=== PATIENT | female | born 1950 | race Caucasian/White ===

== ENCOUNTER 2020-07-14 02:35 | Outpatient (CLI) | payer MEDICARE, SELFPAY ==
[2020-07-14 22:41] LABS: SARS-CoV-2 RNA PCR Negative
== END 2020-07-14 02:36 | disposition home or self-care (01) ==
LOC: ANHCOVIDDT 02:35
PROVIDERS: Visit Provider Obstetrics & Gynecology
DX: Z01.818 Encounter for other preprocedural examination (principal); Z20.828 Contact with and (suspected) exposure to other viral communicable diseases
CPT/HCPCS: 87635; C9803; U0003

== ENCOUNTER 2020-07-14 09:17 | Outpatient (CLI) | payer MEDICARE, SELFPAY ==
--- NOTE | 2020-07-14 09:21 | ECG_ITS ---
Measurements Intervals [place] Rate: 71 P: -28 FL: 152 QRS: -2 QRSD: 89 T: 9 QT: 391 QTc: 426 Interpretive Statements SINUS RHYTHM BORDERLINE R WAVE PROGRESSION, ANTERIOR LEADS BASELINE ARTIFACT- I, III, AVR, AVL, AVF, V1-V6 BORDERLINE ECG Electronically Signed On 07-14-2020 9:57:42 DIRECTOR OF VALUATION by Jesus Duke D.O.
[2020-07-14 09:48] LABS: Hematocrit 38.3 % (37.0-47.0); Hemoglobin 13.1 g/dL (12.0-15.0)
[2020-07-14 10:07] LABS: Anion Gap 7 mmol/L (8-16); Blood Urea Nitrogen 19 mg/dL (7-17); Calcium 9.5 mg/dL (8.4-10.2); Carbon Dioxide 33 mmol/L (22-30); Chloride 99 mmol/L (98-107); Estimated Glomerular Filt Rate > 60; Glucose 93 mg/dL (65-105); Sodium 139 mmol/L (137-145)
== END 2020-07-14 09:18 | disposition home or self-care (01) ==
LOC: ANHSURGERY 09:20
PROVIDERS: PCP Internal Medicine; Visit Provider Obstetrics & Gynecology
DX: Z01.818 Encounter for other preprocedural examination (principal); I10 Essential (primary) hypertension; N95.0 Postmenopausal bleeding; R94.31 Abnormal electrocardiogram [ECG] [EKG]
CPT/HCPCS: 36415; 80048; 85014; 85018; 87635; 93005; C9803; U0003

== ENCOUNTER 2020-07-17 00:58 | Day surgery (SDC) | payer MEDICARE, SELFPAY ==
[2020-07-07 15:39] VITALS: BMI 20.7
--- NOTE | 2020-07-14 14:25 | P.HP_ITS ---
H&P: HPI History of Present Illness Date/Time: 07/14/20 14:25 Chief complaint: post menopausal bleeding Narrative: Shaniqua Pink is a 70 year old female admitted hysteroscopy and dilatation curettage secondary to postmenopausal bleeding she underwent received a question lesion. Risks and benefits procedure reviewed in full. She received the ACOG handout and hysteroscopy as well as dilatation curettage. Asked to proceed Review of Systems Review of Systems: All systems reviewed & are unremarkable except as noted in HPI and below [facility] Social History Social History Smoking status: Never smoker Second hand tobacco smoke exposure: No Alcohol intake: never Substance use: never Substance use type: does not use Spiritual care concerns: No Meds Home Medications and Allergies Home Medications Medication Instructions Recorded Confirmed Type alendronate [Fosamax] 70 mg PO WEEKLY 07/07/20 07/07/20 History diclofenac-misoprostol [Arthrotec 1 tablet PO BID 07/07/20 07/07/20 History 75] estradiol-norethindrone acet 1 tablet PO DAILY 07/07/20 07/07/20 History [Activella] gabapentin [Neurontin] 100 mg PO HS 07/07/20 07/07/20 History hydrochlorothiazide 12.5 mg PO DAILY 07/07/20 07/07/20 History propranolol 60 mg PO DAILY 07/07/20 07/07/20 History sertraline [Zoloft] 100 mg PO DAILY 07/07/20 07/07/20 History Allergies Allergy/AdvReac Type Severity Reaction Status Date / Time acetaminophen AdvReac Rash Verified 07/07/20 15:56 aspirin AdvReac Rash Verified 07/07/20 15:57 celecoxib [From Celebrex] AdvReac Rash Verified 07/07/20 15:56 Exam Const: General: no acute distress Eyes: General: appearance normal, both eyes and all related structures Neck: Neck: supple and no JVD Thyroid: thyroid normal Resp: Effort & Inspection: normal respiratory effort Auscultation: clear to auscultation bilaterally Cardio: Rate: regular rate Rhythm: regular rhythm GI: Inspection: non-distended GI Palp: Yes Soft to palpation, No Tenderness to palpation present (GI) and No Guarding due to palpation present (GI) Auscultation: normal bowel sounds : General: Yes bladder normal to palpation External Female Exam: normal external appearance Speculum Exam - Vagina: normal vaginal discharge and No vaginal bleeding Speculum Exam - Cervix: nontender Bimanual exam- vagina & uterus: bladder normal to palpation and No Cervical tenderness present OB/external & speculum: No vaginal bleeding Skin: General skin exam: no rashes or lesions noted Extrem: General: normal to inspection and no edema Psych: Mental Status: mental status grossly normal Affect: normal affect Assessment and Plan Additional Plan impression: Postmenopausal bleeding Plan: Hysteroscopy/ dilatation curettage
--- NOTE | 2020-07-17 06:20 | WPDHPUPDATE1 ---
History and Physical Update Update Date/Time: 07/17/20 06:20 History and Physical has been reviewed, including an updated exam of the patient. There are NO changes in the patient's condition. Risks, benefits, and alternatives have been discussed and questions answered. Patient agrees to proceed with procedure.
[2020-07-17 11:43] VITALS: BP 113/66; PULSE 72; RESP 16; TEMP 36.2; O2SAT 99
[2020-07-17] MEDS: LACTATED RINGERS 1,000 ML 30 ML IV CONT (12:21)
--- NOTE | 2020-07-17 12:29 | WPDANESEPPF ---
Anes - Initial Pre Proc Eval Procedure: Operation Date: 07/17/20 13:30 Proposed Procedures p Hysteroscopy, Dilation and Curettage - Rusty Saldana MD Date/Time: 07/17/20 12:29 Surgeon: Rusty Saldana MD Pre Op Diagnosis: post menopausal bleeding Patient Data Age: 70 Gender: F Height: 1.65 m Weight: 54 kg Last Vital Signs Temp 36.2 C L 07/17/20 11:43 Pulse 72 07/17/20 11:43 Resp 16 07/17/20 11:43 BP 113/66 07/17/20 11:43 Pulse Ox 99 07/17/20 11:43 Allergies Allergy/AdvReac Type Severity Reaction Status Date / Time acetaminophen AdvReac Rash Verified 07/17/20 12:01 aspirin AdvReac Rash Verified 07/17/20 12:01 celecoxib [From Celebrex] AdvReac Rash Verified 07/17/20 12:01 levofloxacin AdvReac Vomiting Verified 07/17/20 12:02 Home Medications Medication Instructions Recorded Confirmed Type alendronate [Fosamax] 70 mg PO WEEKLY 07/07/20 07/17/20 History diclofenac-misoprostol [Arthrotec 1 tablet PO BID 07/07/20 07/17/20 History 75] estradiol-norethindrone acet 1 tablet PO DAILY 07/07/20 07/17/20 History [Activella] gabapentin [Neurontin] 100 mg PO HS 07/07/20 07/17/20 History hydrochlorothiazide 12.5 mg PO DAILY 07/07/20 07/17/20 History propranolol 60 mg PO DAILY 07/07/20 07/17/20 History sertraline [Zoloft] 100 mg PO DAILY 07/07/20 07/17/20 History pcjipliqbbhg-qoga-awmwn acid 1 tablet PO DAILY 07/17/20 07/17/20 History [Centrum Complete] omega-3 fatty acids [Fish Oil] 1,250 mg PO DAILY 07/17/20 07/17/20 History Patient hx anesthesia problems: none Family hx anesthesia problems: none PMFSH Past Medical History Medical History (Updated 07/17/20 @ 12:29 by Fan Mcconnell DO) Hypertension Scoliosis Social History Social History Smoking status: Never smoker Second hand tobacco smoke exposure: No Alcohol intake: never Substance use: never Substance use type: does not use Living arrangements: with family Spiritual care concerns: No Anes - Eval Final PreProcedure Day of Procedure 07/17/20 12:29 Patient weight: normal Heart: regular rate and rhythm Lungs: clear to auscultation and normal air movement Airway: Mallampati scale class II Neurological: alert and oriented Last oral intake: >/= 8 hours ASA classification: II Emergent: no Anesthetic plan: proceed Anesthesia type and monitoring: general GIVS and standard monitoring Informed Consent: The patient's anesthetic plan and its attendant risks and benefits were discussed with the patient/family/POA. Questions were solicited and answers provided to the satisfaction of the patient/family/POA.
--- NOTE | 2020-07-17 13:41 | PM.PROC ---
Procedure Note - Detailed Date of procedure: 07/17/20 Pre-op diagnosis: post menopausal bleeding Surgeon: Rusty Saldana MD Postop diagnosis: Postmenopausal bleeding/benign-appearing endometrial polyp Procedure: Hysteroscopy/dilatation curettage/polypectomy Anesthesia: IV sedation local Complications: None Findings: Small benign appearing endometrial polyp. Normal-appearing fallopian tube ostia bilaterally. Benign appearing endometrium otherwise Description of procedure: The patient was prepped draped in sterile fashion placed in the dorsal lithotomy position. Under excellent IV sedation weighted speculum placed posterior fornix of. Anterior lip of the cervix grasped with single-tooth tenaculum. 2.5cc of 1% anesthesia placed at 2:46 a.m. 10:00 a.m. cervix. Uterus was noted to be retroverted and sounded to 8cm. Serial dilatation with fragmented dilators performed. This was followed by passage of the 5mm visualizing hysteroscope using normal saline and visualizing medium. Benign bland atrophic endometrium was seen. A small polypoid lesion was seen and this was removed with the polyp forceps. The uterus was scraped over the entire 360? revealing very minimal tissue. The instruments removed. The patient was awakened. All sponge, needle, instrument counts were correct. There were no immediate complications
[2020-07-17 13:43] VITALS: BP 104/53; PULSE 69; RESP 16; TEMP 37.3; O2SAT 96
[2020-07-17 14:10] VITALS: BP 123/69; PULSE 66; RESP 16
[2020-07-17 14:40] VITALS: BP 118/57; PULSE 70; RESP 18
[2020-07-17 15:02] VITALS: BP 112/67; PULSE 68; RESP 18
== END 2020-07-17 15:03 | disposition home or self-care (01) ==
PROVIDERS: PCP Internal Medicine; Visit Provider Obstetrics & Gynecology
PROC: 0U5B8ZZ Destruction of Endometrium, Via Natural or Artificial Opening Endoscopic (ICD-10-PCS; CPT 58563; principal; 2020-07-17 13:30)
DX: N93.9 Abnormal uterine and vaginal bleeding, unspecified (principal); N84.0 Polyp of corpus uteri; Z79.82 Long term (current) use of aspirin
CPT/HCPCS: 58558; 88305; J2250; J2405; J2704; J3010; J7120

== ENCOUNTER 2020-07-21 15:29 | Outpatient (CLI) | payer MEDICARE, SELFPAY ==
--- NOTE | ~2020-07-21 | MM_ITS ---
EXAMINATION: MM screening [facility] w [facility] HISTORY: Screening mammogram TECHNIQUE: Craniocaudal and mediolateral oblique 3-D tomosynthesis images were obtained and synthetic 2-D images were generated. CAD analysis was submitted and interpreted. COMPARISON: 07/10/2019 bilateral diagnostic digital mammogram and limited left breast ultrasound 01/08/2019 limited left breast ultrasound 07/03/2018 diagnostic left digital mammogram and limited left breast ultrasound 06/26/2018, 05/25/2017 bilateral digital screening mammogram examinations BREAST PARENCHYMAL COMPOSITION: The breasts are heterogeneously dense, which may obscure small masses . FINDINGS: Occasional bilateral benign-appearing calcifications. There is no evidence of suspicious ma ss, calcification, or architectural distortion to suggest malignancy in either breast. There has been no suspicious interval change. IMPRESSION: 1. No mammographic evidence of malignancy. 2. Recommend routine screening mammography in one year. BI-RADS Category 2: Benign finding(s). Reviewed, dictated and finalized at location A. S MAINTAINER
== END 2020-07-21 15:30 | disposition home or self-care (01) ==
PROVIDERS: PCP Internal Medicine; Visit Provider Obstetrics & Gynecology
DX: Z12.31 Encounter for screening mammogram for malignant neoplasm of breast (principal)
CPT/HCPCS: 77063; 77067

== ENCOUNTER 2021-08-04 12:48 | Outpatient (CLI) | payer MEDICARE, SELFPAY ==
--- NOTE | ~2021-08-04 | MM_ITS ---
EXAMINATION: MM screening [facility] BI w george HISTORY: Screening mammogram TECHNIQUE: Craniocaudal and mediolateral oblique 3-D tomosynthesis images were obtained and synthetic 2-D images were generated. CAD analysis was submitted and interpreted. COMPARISON: 07/21/2020, 07/10/2019, 07/03/2018, 06/26/2018 BREAST PARENCHYMAL COMPOSITION: The breasts are heterogeneously dense, which may obscure small masses . FINDINGS: There is no evidence of suspicious mass, calcification, or architectural distortion to sugg est malignancy in either breast. There has been no suspicious interval change. IMPRESSION: 1. No mammographic evidence of malignancy. 2. Recommend routine screening mammography in one year. BI-RADS Category 1: Negative Reviewed, dictated and finalized at location A. HANDLER
== END 2021-08-04 12:49 | disposition home or self-care (01) ==
LOC: ANHIMG 12:51
PROVIDERS: PCP Internal Medicine; Visit Provider Obstetrics & Gynecology
DX: Z12.31 Encounter for screening mammogram for malignant neoplasm of breast (principal)
CPT/HCPCS: 77063; 77067

== ENCOUNTER 2022-09-27 17:52 | Outpatient (CLI) | payer MEDICARE, SELFPAY ==
--- NOTE | ~2022-09-27 | MM_ITS ---
EXAMINATION: MM screening [facility] w [facility] HISTORY: Screening mammogram TECHNIQUE: Craniocaudal and mediolateral oblique 3-D tomosynthesis images were obtained and synthetic 2-D images were generated. CAD analysis was submitted and interpreted. COMPARISON: 08/04/2021, 07/21/2020 bilateral screening mammogram examinations BREAST PARENCHYMAL COMPOSITION: The breasts are heterogeneously dense, which may obscure small masses . FINDINGS: There is no evidence of suspicious mass, calcification, or architectural distortion to sugg est malignancy in either breast. There has been no suspicious interval change. IMPRESSION: 1. No mammographic evidence of malignancy. 2. Recommend routine screening mammography in one year. BI-RADS Category 1: Negative Reviewed, dictated and finalized at location A. NING CUSTODIAN
== END 2022-09-27 17:53 | disposition home or self-care (01) ==
PROVIDERS: PCP Internal Medicine; Visit Provider Obstetrics & Gynecology
DX: Z12.31 Encounter for screening mammogram for malignant neoplasm of breast (principal)
CPT/HCPCS: 77063; 77067

== ENCOUNTER 2024-04-29 10:57 | Outpatient (CLI) | payer MEDICARE, SELFPAY ==
--- NOTE | 2024-04-29 12:35 | ECG_ITS ---
Test Date: 2024-04-29 12:52:37 Measurements Intervals [place] Rate: 64 P: 53 [place]: 169 QRS: -29 QRSD: 90 T: 23 QT: 406 QTc: 419 Interpretive Statements SINUS RHYTHM WITH SINUS ARRHYTHMIA DELAYED PRECORDIAL R/S TRANSITION BORDERLINE T WAVE ABNORMALITY- INFERIOR LEADS BASELINE ARTIFACT- I, II, III, AVR, AVL, AVF BORDERLINE ECG No previous ECG available for comparison Electronically Signed On 04-29-2024 13:42:08 CDT by Jesus Duke D.O.
[2024-04-29 13:40] LABS: Basophils Percent Auto 0.8 % (0.2-1.2); Eosinophils Absolute Auto 0.2 K/mm3 (0-0.3); Eosinophils Percent Auto 4.7 % (0-4.4); Hematocrit 38.8 % (37.0-47.0); Hemoglobin 12.9 g/dL (12.0-15.0); Immature Granulocyte Absolute 0.01 K/mm3 (0.00-0.031); Immature Granulocyte Percent A 0.2 % (0-0.5); Lymphocytes Absolute Auto 1.72 K/mm3 (0.9-3.2); Lymphocytes Percent Auto 34.8 % (18.3-44.2); Mean Corpuscular HGB Conc 33.2 g/dl (32-36); Mean Corpuscular Hemoglobin 33.9 pg (26-34); Mean Corpuscular Volume 102.1 fl (80-100); Mean Platelet Volume 10.6 fl (7.4-10.4); Monocytes Absolute Auto 0.3 K/mm3 (0.1-0.6); Monocytes Percent Auto 6.9 % (2.6-8.5); Neutrophils Absolute Auto 2.6 K/mm3 (1.3-6.7); Neutrophils Percent Auto 52.6 % (45.5-73.1); Platelet Count Result 252 k/mm3 (150-375); Red Cell Distribution Width 12.2 % (11.5-14.5); White Blood Count 4.9 K/mm3 (4.5-10.0)
[2024-04-29 13:48] LABS: Partial Thromboplastin Time 23.7 Seconds (22.3-36.8); Prothrombin Time 13.3 Seconds (11.1-14.7)
[2024-04-29 13:55] LABS: Alanine Aminotransferase 29 U/L (6-35); Albumin Level 4.1 g/dL (3.5-5.1); Alkaline Phosphatase 54 U/L (38-126); Anion Gap 7 mmol/L (4-12); Aspartate Amino Transferase 36 U/L (14-36); Bilirubin,Total 0.7 mg/dL (0.2-1.3); Blood Urea Nitrogen 17 mg/dL (7-17); Carbon Dioxide 30 mmol/L (22-30); Chloride 104 mmol/L (98-107); Estimated Glomerular Filt Rate > 60; Glucose 87 mg/dL (65-110); Potassium 4.6 mmol/L (3.4-5.0); Sodium 141 mmol/L (137-145)
== END 2024-04-29 10:58 | disposition home or self-care (01) ==
PROVIDERS: PCP Internal Medicine; Visit Provider Urology
DX: N81.10 Cystocele, unspecified (principal); I10 Essential (primary) hypertension
CPT/HCPCS: 36415; 80053; 85025; 85610; 85730; 86850; 86900; 86901; 87086; 93005

== ENCOUNTER 2024-05-06 01:55 | Day surgery (SDC) | payer MEDICARE, SELFPAY ==
--- NOTE | 2024-04-28 17:35 | PM.IMHP ---
H&P: HPI History of Present Illness Date/Time: 04/28/24 17:35 Chief Complaint: pelvic organ prolapse Narrative: she is pelvic organ prolapse with intrinsic sphincter deficiency. She presents for operative intervention Review of Systems Review of Systems: All systems reviewed & are unremarkable except as noted in HPI and below PMFSH Past Medical History Medical History Hypertension Scoliosis Social History Social History Smoking status: Never smoker Second hand tobacco smoke exposure: No Alcohol intake: never Substance use: never Substance use type: does not use Living arrangements: with family Spiritual care concerns: No Meds Home Medications and Allergies Home Medications Medication Instructions Recorded Confirmed Type alendronate 70 mg tablet (Fosamax) 70 mg PO WEEKLY 07/07/20 07/17/20 History diclofenac 75 mg-misoprostol 200 1 tablet PO BID 07/07/20 07/17/20 History mcg tablet,immediate,delayed release (Arthrotec) estradiol-norethindrone acet 0.5 1 tablet PO DAILY 07/07/20 07/17/20 History mg-0.1 mg tablet gabapentin 100 mg capsule 100 mg PO HS 07/07/20 07/17/20 History (Neurontin) hydrochlorothiazide 12.5 mg tablet 12.5 mg PO DAILY 07/07/20 07/17/20 History propranolol 60 mg capsule,24 60 mg PO DAILY 07/07/20 07/17/20 History hr,extended release sertraline 100 mg tablet (Zoloft) 100 mg PO DAILY 07/07/20 07/17/20 History multivitamin-ferrous 1 tablet PO DAILY 07/17/20 07/17/20 History fumarate-folic acid 18 mg-400 mcg tablet (Centrum Complete) omega-3 fatty acids 1,250 mg PO DAILY 07/17/20 07/17/20 History Allergies Allergy/AdvReac Type Severity Reaction Status Date / Time acetaminophen AdvReac Rash Verified 07/17/20 12:01 aspirin AdvReac Rash Verified 07/17/20 12:01 celecoxib [From Celebrex] AdvReac Rash Verified 07/17/20 12:01 levofloxacin AdvReac Vomiting Verified 07/17/20 12:02 Exam Narrative: significant cystocele with loss of apical support no urethral mobility significant scoliosis Assessment and Plan Assessment and plan (1) Pelvic organ prolapse quantification stage 4 cystocele: Code(s): N81.10 - Cystocele, unspecified Status: Acute (2) Intrinsic sphincter deficiency (ISD): Code(s): N36.42 - Intrinsic sphincter deficiency (ISD) Status: Acute Plan plan for vaginal prolapse procedure. Likely sacral spinous ligament fixation and cystocele repair. Concomitant bulking agent. She has not a candidate for colpopexy due to her significant scoliosis. She understands risks bleeding, infection, damage surrounding organs, damage to the urinary tract, recurrence of prolapse, postoperative voiding dysfunction including incontinence and retention, need for ancillary procedures, fistula formation, dyspareunia, recurrence of prolapse. She agrees to proceed
--- NOTE | 2024-04-29 11:10 | PC.NURSE ---
Report to the Outpatient Waiting Room, entrance under the green pavilion located off [facility], at time __9:00AM on date __05/06/24 . Planned Procedure Time: __11:00AM .? Time changes happen often and if your time is changed the preop area will call you the afternoon before. - You and your visitor will be asked to self-screen and do not enter if you have any COVID symptoms. Please call surgeon if you need to reschedule. - A mask is optional within the hospital at this time. Patients may have clear liquids (water, carbonated beverages, clear teas, apple juice) until 3 hours prior to surgery with a maximum of 20 ounces. - No food from midnight until time of surgery and no smoking. Take only the following medications with a SIP of water on the morning of surgery: ____PROPRANOLOL, SERTRALINE. MAY TAKE TRAMADOL NEEDED FOR PAIN. DO NOT STOP ANY OF YOUR OTHER PRESCRIPTION MEDICATIONS PRIOR TO SURGERY EXCEPT THE FOLLOWING Medications to discontinue per physician ___HOLD ALL VITAMINS/SUPPLEMENTS 7 DAYS PRE-OP PER DR PATEL Date to take last dose 04/28/24 Please no make-up, nail kazakh, hairspray, perfume, deodorant, or body powder the day of surgery.? No jewelry (including any body piercings) or valuables the day of surgery, leave them at home.? Please take a shower or bath the night before, or the morning of, surgery with an antibacterial soap.? Wear comfortable, loose fitting clothing.? - Jewelry must be removed prior to entering the operating room.? Rings and piercings that are not removed may be cut off. - The hospital will not accept responsibility for valuables.? - Please leave all valuables, including medications, at home the day of surgery. If you are going home after surgery, a licensed special client bus driver must drive you home.? - NO public transportation without another adult if you receive anesthesia. - We recommend that an adult stay with you for 24 hours following discharge. - We also recommend that you do not drive, make important decision, drink alcoholic beverages, or take any drugs that were not prescribed by your health care provider for at least 24 hours after your discharge time. Follow any additional instructions given to you from your surgeon. Telephone instructions given to ____PATIENT and asked if any additional questions and then verbalized understanding. Patient advised to call surgeon office or pre surgery nurse liaison [phone] if any additional questions.
[2024-04-29 11:39] VITALS: BP 152/74; PULSE 71; RESP 16; TEMP 36.7; O2SAT 100; BMI 18.5
[2024-05-06] VITALS (14 sets, daily range): BP systolic 118–156; BP diastolic 67–96; PULSE 65–80; RESP 7–18; TEMP 36.2–36.7; O2SAT 94–100
--- NOTE | 2024-05-06 04:34 | WPDHPUPDATE1 ---
History and Physical Update Update Date/Time: 05/06/24 04:34 History and Physical has been reviewed, including an updated exam of the patient. There are NO changes in the patient's condition. Risks, benefits, and alternatives have been discussed and questions answered. Patient agrees to proceed with procedure.
[2024-05-06] MEDS: LACTATED RINGERS 1,000 ML 30 ML IV CONT ×2 (09:30→12:20)
--- NOTE | 2024-05-06 09:43 | WPDANESEPPF ---
Anes - Initial Pre Proc Eval Procedure: Operation Date: 05/06/24 11:00 Proposed Procedures p Vaginal Sacrospinus Fixation, Cystocele Repair, Urethral Sling, - Keith Singletary MD s Cystoscopy, Injection Bulking Agent - Keith Singletary MD Date/Time: 05/06/24 09:43 Surgeon: Keith Singletary MD Pre Op Diagnosis: uterine prolapse, cystocele, stress incont Patient Data Age: 74 Gender: F Height: 1.65 m Weight: 50.5 kg Last Vital Signs Temp 36.7 C 04/29/24 11:39 Pulse 71 04/29/24 11:39 Resp 16 04/29/24 11:39 BP 152/74 H 04/29/24 11:39 Pulse Ox 100 04/29/24 11:39 O2 Del Method Room Air 04/29/24 11:39 Allergies Allergy/AdvReac Type Severity Reaction Status Date / Time acetaminophen Allergy Rash Verified 04/29/24 11:26 aspirin Allergy Rash Verified 04/29/24 11:26 celecoxib [From Celebrex] Allergy Rash Verified 04/29/24 11:26 clavulanic acid Allergy Vomiting Verified 04/29/24 11:26 [From Augmentin] diphenhydramine Allergy Rash Verified 04/29/24 11:35 [From Benadryl] Home Medications Medication Instructions Recorded Confirmed Type diclofenac 75 mg-misoprostol 200 1 tablet PO BID 07/07/20 04/29/24 History mcg tablet,immediate,delayed release (Arthrotec) estradiol-norethindrone acet 0.5 1 tablet PO DAILY 07/07/20 04/29/24 History mg-0.1 mg tablet propranolol 60 mg capsule,24 60 mg PO DAILY 07/07/20 04/29/24 History hr,extended release sertraline 100 mg tablet (Zoloft) 100 mg PO DAILY 07/07/20 04/29/24 History multivitamin-ferrous 1 tablet PO DAILY 07/17/20 04/29/24 History fumarate-folic acid 18 mg-400 mcg tablet (Centrum Complete) omega-3 fatty acids 1,250 mg PO BID 07/17/20 04/29/24 History calcium carb-ergocalciferol (vit 1 tablet PO BID 04/29/24 04/29/24 History D2) 600 mg calcium-200 unit tablet cetirizine 10 mg capsule (Zyrtec) 10 mg PO DAILY PRN Sinus Symptoms 04/29/24 04/29/24 History cholecalciferol (vitamin D3) 125 125 mcg PO DAILY 04/29/24 04/29/24 History mcg (5,000 unit) capsule fluticasone propionate 50 2 spray intranasal BID PRN Nasal 04/29/24 04/29/24 History mcg/actuation nasal Congestion spray,suspension gabapentin 300 mg capsule 300 mg PO HS 04/29/24 04/29/24 History geriatric multivitamin-min 1 tablet PO DAILY 04/29/24 04/29/24 History lisinopril 10 mg tablet 10 mg PO QAM 04/29/24 04/29/24 History rosuvastatin 5 mg tablet 5 mg PO QAM 04/29/24 04/29/24 History tizanidine 2 mg tablet 4 mg PO TID PRN Muscle Spasm 04/29/24 04/29/24 History tramadol 50 mg tablet 50 mg PO TID PRN Pain 04/29/24 04/29/24 History Patient hx anesthesia problems: none Family hx anesthesia problems: none Results Review: All pre-operative results and documents have been reviewed as part of the pre-operative evaluation. [facility] Past Medical History Medical History Hypertension Scoliosis Social History Social History Smoking status: Never smoker Second hand tobacco smoke exposure: No Alcohol intake: never Substance use: never Substance use type: does not use Living arrangements: alone Spiritual care concerns: No Anes - Eval Final PreProcedure Day of Procedure 05/06/24 09:43 Patient weight: normal Heart: regular rate and rhythm Lungs: clear to auscultation Airway: Mallampati scale class II Neurological: alert and oriented Last oral intake: >/= 8 hours ASA classification: II Emergent: no Anesthetic plan: proceed Anesthesia type and monitoring: general LMA and standard monitoring Results Review: All pre-operative results and documents have been reviewed as part of the pre-operative evaluation. Informed Consent: The patient's anesthetic plan and its attendant risks and benefits were discussed with the patient/family/POA. Questions were solicited and answers provided to the satisfaction of the patient/family
[2024-05-06] MEDS: ceFAZolin 2 GM/D5W 50 ML 2 GM/50 ML BAG IVPB (11:00)
[2024-05-06] MEDS: BUPIVACAINE/EPINEPHRINE 0.5% 10 ML VIAL 30 ML INFILTRATE (11:41)
--- NOTE | 2024-05-06 12:35 | W.PM.PROC2 ---
Procedure Note - Detailed Date of Procedure 05/06/24 Pre-op Diagnosis uterine prolapse, cystocele, intrinsic sphincter deficiency Post-op Diagnosis Same Procedure Performed sacral spinous ligament fixation cystocele repair cystoscopy with suburethral injection of implant material Surgeon Keith Singletary MD Anesthesia General Indications this is a with urine prolapse. She presents today for a vaginal procedure. We will do a sacral spinous ligament fixation. She has mixed incontinence. Intrinsic sphincter deficiency is amongst her diagnosis. We will do a bulking agent as well. She understands risks of bleeding, infection, damage to surrounding organs, damage to the urinary tract, damage to the bowel, fistula formation, recurrence of prolapse, postoperative voiding dysfunction including incontinence and retention, need for ancillary procedures, need for repeat bulking agent, painful intercourse. She agrees to proceed Findings uncomplicated prolapse and stress incontinence procedure Description of Procedure she was correctly identified. Informed consent was obtained. She from the operating room. She was given general anesthesia. She was placed in dorsal thigh position. She was prepped draped sterile fashion. Time-out performed she was given appropriate perioperative antibiotics. Placed Tyler catheter. I placed a [place] retractor. She had uterine prolapse to the level of the introitus. I grasped the pleura laps with Allis clamps. She had no significant posterior wall prolapse. I infiltrated subcutaneous tissues in the anterior vaginal wall with local mixed with saline. A midline vaginal incision. I dissected out laterally 1st on the right. I dissected the vaginal mucosa underlying so pelvic structures. I took great care not to injure the vaginal wall or the bladder. I entered the retroperitoneal space on the right side. I palpated the sacral spinous ligament as well as the ischial spine. I pushed the rectum medially. I then repeated this on the contralateral side. I did not enter the retroperitoneal space on the left. But I did do a significant dissection to free the vaginal wall off the underlying fascial structures. I then used the Capio device to place 2 permanent sutures in the sacral spinous ligament. I did this 2 fingerbreadths medial to the ischial spine. I secured the other end of this suture into the cervix. The 1st stent into the sacral spinous ligament. I then did a plication cystocele repair. I did this with interrupted 0 Vicryl suture. This reduced the cystocele. I then started the closure the vaginal mucosa. I then tied down both sutures on the sacral spinous ligament fixation. This reduced the prolapse completely. I assured hemostasis. I finished the vaginal wall closure. There is no significant perineal laxity. I opted to not perform a perineorrhaphy. On cystoscopy she had mild trabeculations. No abnormal red patches. No foreign bodies. No surgical artifact in the bladder urethra. Urethra open consistent with intrinsic sphincter deficiency. Both ureters were seen to excrete clear yellow urine I then chose a spot 2 cm distal bladder neck to perform the bulking agent. I injected bulking agent circumferentially. I used 1-1/2 syringe. There was excellent bulking effect. I left the bladder partially full. She was awakened transferred to PACU in stable Estimated Blood Loss 40 Drains No Packing No Pathology Yes Complications No immediate complications Condition Stable Disposition PACU
== END 2024-05-06 16:43 | disposition home or self-care (01) ==
PROVIDERS: PCP Internal Medicine; Visit Provider Urology
PROC: (CPT 57260; principal; 2024-05-06 11:00)
PROC: 3E0K8GC Introduction of Other Therapeutic Substance into Genitourinary Tract, Via Natural or Artificial Opening Endoscopic (ICD-10-PCS; CPT 57240; 2024-05-06 11:00)
DX: N36.42 Intrinsic sphincter deficiency (ISD) (principal); N39.46 Mixed incontinence; N81.4 Uterovaginal prolapse, unspecified; I10 Essential (primary) hypertension; M41.9 Scoliosis, unspecified; Z79.891 Long term (current) use of opiate analgesic
CPT/HCPCS: 57240; 51715; 57282; A9270; J0690; J1100; J2003; J2405; J2704; J2710; J3010; J7030; J7120; L8606; Q9968